=== PATIENT | male | born 1980 | race Caucasian/White ===

== ENCOUNTER 2018-04-05 11:15 | Outpatient (RCR) | payer OTHER | END 2018-04-08 | disposition home or self-care (01) | PROVIDERS: ATTEND Orthopaedic Surgery Orthopaedic Surgery of the Spine | DX: M50.10 Cervical disc disorder with radiculopathy, unspecified cervical region (principal) ==

== ENCOUNTER 2018-06-07 08:45 | Outpatient (RCR) | payer OTHER | END 2018-06-10 07:41 | disposition home or self-care (01) | PROVIDERS: ATTEND Orthopaedic Surgery Orthopaedic Surgery of the Spine | DX: M50.10 Cervical disc disorder with radiculopathy, unspecified cervical region (principal) ==

== ENCOUNTER 2018-06-13 10:27 | Outpatient (RCR) | payer OTHER | END 2018-07-11 15:23 | disposition home or self-care (01) | PROVIDERS: ATTEND Orthopaedic Surgery Orthopaedic Surgery of the Spine | DX: M50.10 Cervical disc disorder with radiculopathy, unspecified cervical region (principal) ==

== ENCOUNTER → 2019-03-28 | Outpatient (RCR) | payer SELFPAY | PROVIDERS: ATTEND Orthopaedic Surgery Orthopaedic Surgery of the Spine | DX: Z53.9 Procedure and treatment not carried out, unspecified reason (principal) ==